=== PATIENT | male | born 1945 | race Caucasian/White ===

== ENCOUNTER → 2017-05-08 | Outpatient (CLI) | payer OTHER ==
[~2017-05-08] VITALS: Ht 157.5 cm; Wt 68.0 kg
[~2017-05-08] MED LIST: ALBUTEROL2.5 MG/3 M IH; ALTOPREV40 MG PO; AZITHROMYCIN PO; CALCIUM + VITA1 EAC2 PO; CARDIZEM CD240 MG PO; CARTIA XT240 MG PO; CENTRUM SILVER1 EAC3 PO; CHEWABLE MULTI1 EACH PO; Cardizem CD,Cartia X PO; DOCUSATE SODIU100 MG PO; DULERA 100 MCG/13 GM IH; LEVALBUTER1.25 MG/0. AEROSOL; LEVALBUTER1.25 MG/3 IH; LEVAQUIN750 MG PO; LOVASTATIN20 MG PO; MUCINEX D ER T1 EACH PO; PREDNISOLONE SO10 MG PO; PREDNISONE10 MG PO; PREDNISONE20 MG PO; PROVENTIL,2.5 MG/0.5 IH; SENNA8.6 MG PO; SPIRIVA1 INHALATI IH; STIOLTO RESPIMAT4 GM IH; SYMBICORT60 INHALAT IH; Spiriva IH; TYLENOL EXTRA500 MG PO; XARELTO20 MG PO; Xarelto PO; [UNRECOGNIZED DRUG - OTHER] PO
[2017-05-08 10:56] VITALS: BP 134/80
== END | disposition home or self-care (01) ==
LOC: IVINF 05-07 15:00
DX: M81.8 Other osteoporosis without current pathological fracture (principal)
CPT/HCPCS: 96365; J3489

== ENCOUNTER 2017-09-10 21:49 | Inpatient (IN) | payer OTHER ==
[~2017-09-10] VITALS: Ht 162.6 cm; Wt 68.8 kg
[2017-09-10 22:37] LABS: BASE EXCESS 5.5 mEq/L (-3 to +3); CARBOXY HGB 1.8 % (0-5); METHEMOGLOBIN 1.2 % (0-1.5); PCO2 66 mm Hg (35-45); PO2 123 mm Hg (80-100); pH 7.32 (7.35-7.45)
[2017-09-10 22:38] LABS: COMMENTS - BLOOD GASES A+C+; DEVICE NEB MASK; O2 FLOW 8 L/MIN; SITE LR; TOTAL RESP RATE 26 resp/min
[2017-09-10 22:46] LABS: EOSINOPHIL (%) 2.9 % (0-5); EOSINOPHIL COUNT 0.3 K/uL (0-0.3); HEMATOCRIT 44.1 % (38.0-50.0); IMMATURE GRANULOCYTE (%) 0.3 % (0.0-0.7); INSTRUMENT ABS NEUTROPHIL CT 7.5 K/uL; LYMPHOCYTE COUNT 0.8 K/uL (1.0-2.8); MCHC 32.9 G/DL (30.0-36.0); MCV 91.3 FL (86-99); MONOCYTE (%) 7.5 % (3-12); MONOCYTE COUNT 0.7 K/uL (0-0.8); NEUTROPHIL (%) 80.9 % (45-76); NEUTROPHIL COUNT 7.5 K/uL (1.8-6.4); PLATELET COUNT 171 K/uL (156-360); RBC DIS.WIDTH-CV 13.3 % (11.8-14.6); RBC DIS.WIDTH-SD 45.2 % (39-53); RED BLOOD COUNT 4.83 M/uL (4.00-5.50); WHITE BLOOD COUNT 9.3 K/uL (4.1-10.2)
[2017-09-10 22:57] LABS: CHLORIDE 100 mEq/L (99-109); POTASSIUM 4.5 mEq/L (3.7-5.4); SODIUM 141 mEq/L (136-147)
[2017-09-10 22:59] LABS: GLUCOSE 113 mg/dL (70-99)
[2017-09-10 23:00] LABS: ANION GAP 9 MEQ/L (2-14)
[2017-09-10 23:01] LABS: TOTAL BILIRUBIN 0.5 mg/dL (0.0-1.0)
[2017-09-10 23:02] LABS: ALKALINE PHOSPHATASE 77 IU/L (3-129)
[2017-09-10 23:03] LABS: GFR ESTIMATE (CALCULATED) > 59 mL/min/
[2017-09-10 23:04] LABS: UREA NITROGEN (BUN) 21 mg/dL (9-23)
[2017-09-11] VITALS (7 sets, daily range): BP systolic 127–142; BP diastolic 71–91
[2017-09-12 03:54] VITALS: BP 128/77
[2017-09-12 06:30] LABS: HEMATOCRIT 37.8 % (38.0-50.0); MCH 29.8 PG (29.0-34.0); MCHC 33.1 G/DL (30.0-36.0); MCV 90.2 FL (86-99); MEAN PLAT.VOLUME 10.7 uM^3 (9.0-12.4); PLATELET COUNT 156 K/uL (156-360); RBC DIS.WIDTH-CV 13.6 % (11.8-14.6); RBC DIS.WIDTH-SD 44.7 % (39-53); RED BLOOD COUNT 4.19 M/uL (4.00-5.50); WHITE BLOOD COUNT 11.5 K/uL (4.1-10.2)
[2017-09-12 06:33] LABS: ANION GAP 4 MEQ/L (2-14); CHLORIDE 105 MEQ/L (99-109); GFR ESTIMATE (CALCULATED) > 59 mL/min/; GLUCOSE 158 mg/dL (70-99); POTASSIUM 4.4 MEQ/L (3.7-5.4); SAMPLE HEMOLYSIS CHECK 0; SAMPLE ICTERIC CHECK 0; SAMPLE LIPEMIA CHECK 0; SODIUM 144 MEQ/L (136-147); UREA NITROGEN (BUN) 17 mg/dL (9-23)
[2017-09-12 07:08] VITALS: BP 130/74
[2017-09-12 11:47] VITALS: BP 113/74
[2017-09-12 15:25] VITALS: BP 129/71
[2017-09-12 19:40] VITALS: BP 143/78
[2017-09-13 00:55] VITALS: BP 131/87
[2017-09-13 04:11] VITALS: BP 135/83
[2017-09-13 07:24] VITALS: BP 134/76
[2017-09-13 11:00] VITALS: BP 147/83
[2017-09-13 16:17] VITALS: BP 139/83
[2017-09-13 20:00] VITALS: BP 155/90
[2017-09-14] VITALS (7 sets, daily range): BP systolic 115–1414; BP diastolic 70–95
[2017-09-15] VITALS (7 sets, daily range): BP systolic 131–167; BP diastolic 65–95
[2017-09-16] VITALS (7 sets, daily range): BP systolic 132–156; BP diastolic 78–100
[2017-09-16 06:36] LABS: HEMATOCRIT 38.2 % (38.0-50.0); MCH 29.4 PG (29.0-34.0); MCHC 32.2 G/DL (30.0-36.0); MCV 91.4 FL (86-99); MEAN PLAT.VOLUME 10.8 uM^3 (9.0-12.4); PLATELET COUNT 152 K/uL (156-360); RBC DIS.WIDTH-CV 13.5 % (11.8-14.6); RBC DIS.WIDTH-SD 45.7 % (39-53); RED BLOOD COUNT 4.18 M/uL (4.00-5.50); WHITE BLOOD COUNT 5.8 K/uL (4.1-10.2)
[2017-09-16 07:08] LABS: ANION GAP 3 MEQ/L (2-14); CHLORIDE 102 MEQ/L (99-109); GFR ESTIMATE (CALCULATED) > 59 mL/min/; GLUCOSE 173 mg/dL (70-99); POTASSIUM 4.6 MEQ/L (3.7-5.4); SAMPLE HEMOLYSIS CHECK 0; SAMPLE ICTERIC CHECK 0; SAMPLE LIPEMIA CHECK 0; SODIUM 143 MEQ/L (136-147); UREA NITROGEN (BUN) 21 mg/dL (9-23)
[2017-09-17 03:50] VITALS: BP 152/86
[2017-09-17 07:12] VITALS: BP 140/80
[2017-09-17 11:40] VITALS: BP 133/81
[2017-09-17 15:30] VITALS: BP 139/94
[2017-09-17 19:48] VITALS: BP 139/83
[2017-09-18] VITALS (7 sets, daily range): BP systolic 125–154; BP diastolic 72–89
[2017-09-19 03:34] VITALS: BP 138/90
[2017-09-19 08:27] VITALS: BP 129/85
[2017-09-19 13:37] VITALS: BP 137/81
[2017-09-19 16:43] VITALS: BP 142/95
[2017-09-19 19:45] VITALS: BP 138/87
[2017-09-19 23:23] VITALS: BP 152/74
[2017-09-20 03:41] VITALS: BP 142/72
[2017-09-20 09:27] VITALS: BP 141/85
[2017-09-20 12:21] VITALS: BP 137/72
[2017-09-20 17:32] VITALS: BP 141/78
[2017-09-20 19:20] VITALS: BP 137/87
[2017-09-20 23:30] VITALS: BP 145/69
[2017-09-21 03:56] VITALS: BP 138/90
[2017-09-21 07:05] VITALS: BP 137/81
[2017-09-21 11:22] VITALS: BP 141/83
[2017-09-21 16:55] VITALS: BP 141/72
[2017-09-21] MEDS ORDERED: DUONEB 2.5-0.5 M3 ML AEROSOL (17:18)
[2017-09-21 19:37] VITALS: BP 160/91
== END 2017-09-21 19:57 | disposition home health service (06) | DRG 191 ==
LOC: EME 21:49 → 2EAST 09-11 00:40 → EDOF 09-11 00:40 → ENRESERV 09-11 00:41 → 2EAST 09-11 01:32
PROVIDERS: Emergency Medicine; Family Medicine
DX: J44.1 Chronic obstructive pulmonary disease with (acute) exacerbation (principal); E87.2 Acidosis; I48.2 Chronic atrial fibrillation; Z99.81 Dependence on supplemental oxygen; Z87.891 Personal history of nicotine dependence; J20.9 Acute bronchitis, unspecified; J44.0 Chronic obstructive pulmonary disease with (acute) lower respiratory infection; R09.02 Hypoxemia; F41.9 Anxiety disorder, unspecified; E78.5 Hyperlipidemia, unspecified; I10 Essential (primary) hypertension
CPT/HCPCS: 36600; 71010; 71020; 80048; 80053; 82803; 83605; 85025; 85027; 87040; 87502; 93005; 93306; 94640; 94640 76; 94760; 94799; 99202; 99281; 99285; J0696; J1956; J2930; J7030; J7512